=== PATIENT | female | born 1940 | race Two or more races ===

== ENCOUNTER 2023-11-20 20:14 | Inpatient (IN) | payer MEDICARE ==
--- NOTE | 2023-11-20 20:23 | ED ---
SOB HPI - General Chief Complaint: Shortness of Breath Stated Complaint: Coughing up blood Time Seen by Provider: 11/20/23 20:19 Source: EMS, RN notes reviewed, old records reviewed Mode of arrival: EMS Limitations: no limitations - History of Present Illness Initial Comments: This is an 83 male to the ED co coughing up blood. Patient is on eliquis for afib. PAtient has significant SOB, history of COPD on oxygen is brought in by EMS for hypoxia unable to improve O2 as a priority one, patient is a poor istorian due to significant clinical condition., Patient is having persistent hemoptysis here in the ER MD Complaint: shortness of breath, cough, anxiety -: hour(s) Severity: severe Severity scale (1-10): 10 Consistency: constant, intermittent Worsens With: nothing Known History Of: COPD Context: recent URI, anxiety, recent illness Associated Symptoms: denies other symptoms - Related Data Home Medications Medication Instructions Recorded Confirmed Amiodarone [Cordarone] 100 mg PO DAILY 11/20/23 11/20/23 Beclomethasone Dipropionate [Qvar 2 puff INHALATION DIRECTED 11/20/23 11/20/23 80mcg Redihaler] Cranberry 4,200 Mg 4,200 mg PO BID 11/20/23 11/20/23 Fluticasone Propionate 110 Mcg 2 puff INHALATION RT-BID 11/20/23 11/20/23 [Flovent 110 Mcg Inhaler] Levothyroxine Sodium [Synthroid] 75 mcg PO DAILY 11/20/23 11/20/23 Montelukast [Singulair] 10 mg PO HS 11/20/23 11/20/23 Multivit-Min/Iron/Folic/Lutein 1 tab PO HS 11/20/23 11/20/23 [Centrum Silver Women Tablet] Omeprazole 20 mg PO DAILY 11/20/23 11/20/23 Vit C/E/Zn/Coppr/Lutein/Zeaxan 1 cap PO BID 11/20/23 11/20/23 [Preservision Areds 2 Softgel] atenoloL [Tenormin] 25 mg PO HS 11/20/23 11/20/23 Allergies Allergy/AdvReac Type Severity Reaction Status Date / Time Penicillins Allergy Rash/Hives Verified 11/20/23 22:17 Review of Systems ROS Statement: Those systems with pertinent positive or pertinent negative responses have been documented in the HPI. ROS Other: All systems not noted in ROS Statement are negative. Past Medical History Past Medical History: Atrial Fibrillation, Asthma, COPD, Hypertension History of Any Multi-Drug Resistant Organisms: None Reported Past Surgical History: Cholecystectomy, Hysterectomy Past Psychological History: No Psychological Hx Reported Smoking Status: Never smoker Past Alcohol Use History: None Reported Past Drug Use History: None Reported General Exam Limitations: no limitations General appearance: alert, anxious, in distress Head exam: Present: atraumatic, normocephalic, normal inspection Eye exam: Present: normal appearance, PERRL, EOMI. Absent: scleral icterus, conjunctival injection, periorbital swelling ENT exam: Present: normal exam, mucous membranes moist Neck exam: Present: normal inspection. Absent: tenderness, meningismus, lymphadenopathy Respiratory exam: Present: respiratory distress, wheezes, accessory muscle use, decreased breath sounds, prolonged expiratory. Absent: rales, rhonchi, stridor Cardiovascular Exam: Present: normal rhythm, tachycardia, normal heart sounds. Absent: systolic murmur, diastolic murmur, rubs, gallop, clicks GI/Abdominal exam: Present: soft, normal bowel sounds. Absent: distended, tenderness, guarding, rebound, rigid Extremities exam: Present: normal inspection, full ROM, normal capillary refill. Absent: tenderness, pedal edema, joint swelling, calf tenderness Back exam: Present: normal inspection Neurological exam: Present: alert, oriented X3, CN II-XII intact Psychiatric exam: Present: normal affect, normal mood Skin exam: Present: warm, dry, intact, normal color. Absent: rash Course Vital Signs 11/20/23 11/20/23 11/20/23 20:15 20:24 20:50 Temperature 98.9 F Pulse Rate 102 H 99 Pulse Rate [ Pulse Oximetery ] Respiratory 20 20 Rate Blood Pressure 172/94 138/76 Blood Pressure [Right Arm Sitting] O2 Sat by Pulse 86 L 87 L 90 L Oximetry 11/20/23 11/20/23 11/20/23 21:08 21:10 21:43 Temperature Pulse Rate 100 99 99 Pulse Rate [ Pulse Oximetery ] Respiratory 20 Rate Blood Pressure 122/70 Blood Pressure [Right Arm Sitting] O2 Sat by Pulse 96 Oximetry 11/20/23 11/20/23 11/21/23 22:30 22:50 00:00 Temperature 97.9 F Pulse Rate 91 89 Pulse Rate [ 86 Pulse Oximetery ] Respiratory 20 18 20 Rate Blood Pressure 129/66 122/76 Blood Pressure 143/69 [Right Arm Sitting] O2 Sat by Pulse 99 99 100 Oximetry 11/21/23 01:00 Temperature Pulse Rate 90 Pulse Rate [ Pulse Oximetery ] Respiratory 20 Rate Blood Pressure 118/96 Blood Pressure [Right Arm Sitting] O2 Sat by Pulse 100 Oximetry - Reevaluation(s) Reevaluation #1: Medical records are reviewed Reevaluation #2: Symptoms are unchanged, bleeding is improved Reevaluation #3: Informed of results and questions answered Reevaluation #4: Was pt. sent in by a medical professional or institution ([facility], [facility], urgent care, hospital, or senior care...) When possible be specific @ -no Did you speak to anyone other than the patient for history (EMS, parent, family, police, friend...)? What history was obtained from this source @ -no Did you review nursing and triage notes (agree or disagree)? Why? @ -agree Are old charts reviewed (outside hosp., previous admission, EMS record, old EKG, old radiological studies, urgent care reports/EKG's, senior care records)? Report findings @ -yes Differential Diagnosis (chest pain, altered mental status, abdominal pain women, abdominal pain men, vaginal bleeding, weakness, fever, dyspnea, syncope, headache, dizziness, GI bleed, back pain, seizure, CVA, palpatations, mental health, musculoskeletal)? @ -prior EKG interpreted by me (3pts min.). @ -yes X-rays interpreted by me (1pt min.). @ -yes positive for pneumonitis CT interpreted by me (1pt min.). @ -yes positive for pneumonitis U/S interpreted by me (1pt. min.). @ -no What testing was considered but not performed or refused? (CT, X-rays, U/S, labs)? Why? @ -none What meds were considered but not given or refused? Why? @ -none Did you discuss the management of the patient with other professionals (professionals i.e. [facility], [facility], lab, RT, psych nurse, home health care social worker, doctor of veterinary medicine, teacher, enforcement safety officer, high risk case manager)? Give summary @ -no Was smoking cessation discussed for >3mins.? @ -no Was critical care preformed (if so, how long)? @ -no Were there social determinants of health that impacted care today? How? (Homelessness, low income, unemployed, alcoholism, drug addiction, transportation, low edu. Level, literacy, decrease access to med. care, [facility], rehab)? @ -none Was there de-escalation of care discussed even if they declined (Discuss DNR or withdrawal of care, Hospice)? DNR status @ -no What co-morbidities impacted this encounter? (DM, HTN, Smoking, COPD, CAD, Cancer, CVA, ARF, Chemo, Hep., AIDS, mental health diagnosis, sleep apnea, morbid obesity)? @ -none Was patient admitted / discharged? Hospital course, mention meds given and route, prescriptions, significant lab abnormalities, going to OR and other pertinent info. @ -83 female to the ER for evaluation of severe hypoxia with massive hemoptysis. Patient is a DNR but will admitted for supportive care Undiagnosed new problem with uncertain prognosis? @ -no Drug Therapy requiring intensive monitoring for toxicity (Heparin, Nitro, Insulin, Cardizem)? @ -no Were any procedures done? @ -no Diagnosis/symptom? @ -Massive hemoptysis, hypoxia, bronchitis Acute, or Chronic, or Acute on Chronic? @ -Acute Uncomplicated (without systemic symptoms) or Complicated (systemic symptoms)? @ -Complicated Side effects of treatment? @ -no Exacerbation, Progression, or Severe Exacerbation? @ -exacerbation Poses a threat to life or bodily function? How? (Chest pain, USA, AR, pneumonia, PE, COPD, DKA, ARF, appy, cholecystitis, CVA, Diverticulitis, Homicidal, Suicidal, threat to staff... and all critical care pts) @ -yes with significant massive hemoptysis Medical Decision Making - Medical Decision Making 83 female to the ER for evaluation, patient is a DNR coming in for massive pulmonary hemoptysis which is improving. Patient wants no change in symptoms. Patient is currently on blood thinners and will be admitted for evaluation of hemoptysis with severe hypoxia - Lab Data Result diagrams: 11/23/23 12:01 11/22/23 09:52 Lab Results 03/13/24 03/13/24 03/13/24 Range/Units 20:19 20:25 20:25 WBC 11.5 H (3.8-10.6) k/uL RBC 3.05 L (3.80-5.40) m/uL Hgb 9.8 L (11.4-16.0) gm/dL Hct 30.0 L (34.0-46.0) % MCV 98.4 (80.0-100.0) fL MCH 32.2 (25.0-35.0) pg MCHC 32.7 (31.0-37.0) g/dL RDW 13.4 (11.5-15.5) % Plt Count 397 (150-450) k/uL MPV 7.7 Neutrophils % 45 % Lymphocytes % 41 % Monocytes % 7 % Eosinophils % 3 % Basophils % 1 % Neutrophils # 5.2 (1.3-7.7) k/uL Lymphocytes # 4.7 (1.0-4.8) k/uL Monocytes # 0.8 (0-1.0) k/uL Eosinophils # 0.4 (0-0.7) k/uL Basophils # 0.1 (0-0.2) k/uL PT 10.6 (10.0-12.5) sec INR 1.0 (<1.2) APTT 23.6 (22.0-30.0) sec Sodium (137-145) mmol/L Potassium (3.5-5.1) mmol/L Chloride (98-107) mmol/L Carbon Dioxide (22-30) mmol/L Anion Gap mmol/L BUN (7-17) mg/dL Creatinine (0.52-1.04) mg/dL Est GFR (CKD-EPI)AfAm (>60 ml/min/1.73 sqM) Est GFR (CKD-EPI)NonAf (>60 ml/min/1.73 sqM) Glucose (74-99) mg/dL Lactic Ac Sepsis Rflx Plasma Lactic Acid Ayush (0.7-2.0) mmol/L Calcium (8.4-10.2) mg/dL Magnesium (1.6-2.3) mg/dL Total Bilirubin (0.2-1.3) mg/dL AST (14-36) U/L ALT (4-34) U/L Alkaline Phosphatase (38-126) U/L Troponin I (0.000-0.034) ng/mL NT-Pro-B Natriuret Pep pg/mL Total Protein (6.3-8.2) g/dL Albumin (3.5-5.0) g/dL Blood Type A Positive Blood Type Confirm Blood Type Recheck No Previous Record Bld Type Recheck Status CABO Indicated Antibody Screen NEGATIVE Spec Expiration Date 11/23/2023 - 231811/20/23 11/20/23 11/20/23 Range/Units 20:25 20:25 20:25 WBC (3.8-10.6) k/uL RBC (3.80-5.40) m/uL Hgb (11.4-16.0) gm/dL Hct (34.0-46.0) % MCV (80.0-100.0) fL MCH (25.0-35.0) pg MCHC (31.0-37.0) g/dL RDW (11.5-15.5) % Plt Count (150-450) k/uL MPV Neutrophils % % Lymphocytes % % Monocytes % % Eosinophils % % Basophils % % Neutrophils # (1.3-7.7) k/uL Lymphocytes # (1.0-4.8) k/uL Monocytes # (0-1.0) k/uL Eosinophils # (0-0.7) k/uL Basophils # (0-0.2) k/uL PT (10.0-12.5) sec INR (<1.2) APTT (22.0-30.0) sec Sodium 133 L (137-145) mmol/L Potassium 3.7 (3.5-5.1) mmol/L Chloride 99 (98-107) mmol/L Carbon Dioxide 25 (22-30) mmol/L Anion Gap 9 mmol/L BUN 14 (7-17) mg/dL Creatinine 0.41 L (0.52-1.04) mg/dL Est GFR (CKD-EPI)AfAm >90 (>60 ml/min/1.73 sqM) Est GFR (CKD-EPI)NonAf >90 (>60 ml/min/1.73 sqM) Glucose 214 H (74-99) mg/dL Lactic Ac Sepsis Rflx Plasma Lactic Acid Ayush 2.6 H* (0.7-2.0) mmol/L Calcium 8.4 (8.4-10.2) mg/dL Magnesium 2.0 (1.6-2.3) mg/dL Total Bilirubin 0.3 (0.2-1.3) mg/dL AST 24 (14-36) U/L ALT 18 (4-34) U/L Alkaline Phosphatase 111 (38-126) U/L Troponin I <0.012 (0.000-0.034) ng/mL NT-Pro-B Natriuret Pep 649 pg/mL Total Protein 6.5 (6.3-8.2) g/dL Albumin 3.6 (3.5-5.0) g/dL Blood Type Blood Type Confirm Blood Type Recheck Bld Type Recheck Status Antibody Screen Spec Expiration Date 11/20/23 11/20/23 Range/Units 20:31 21:07 WBC (3.8-10.6) k/uL RBC (3.80-5.40) m/uL Hgb (11.4-16.0) gm/dL Hct (34.0-46.0) % MCV (80.0-100.0) fL MCH (25.0-35.0) pg MCHC (31.0-37.0) g/dL RDW (11.5-15.5) % Plt Count (150-450) k/uL MPV Neutrophils % % Lymphocytes % % Monocytes % % Eosinophils % % Basophils % % Neutrophils # (1.3-7.7) k/uL Lymphocytes # (1.0-4.8) k/uL Monocytes # (0-1.0) k/uL Eosinophils # (0-0.7) k/uL Basophils # (0-0.2) k/uL PT (10.0-12.5) sec INR (<1.2) APTT (22.0-30.0) sec Sodium (137-145) mmol/L Potassium (3.5-5.1) mmol/L Chloride (98-107) mmol/L Carbon Dioxide (22-30) mmol/L Anion Gap mmol/L BUN (7-17) mg/dL Creatinine (0.52-1.04) mg/dL Est GFR (CKD-EPI)AfAm (>60 ml/min/1.73 sqM) Est GFR (CKD-EPI)NonAf (>60 ml/min/1.73 sqM) Glucose (74-99) mg/dL Lactic Ac Sepsis Rflx Y Plasma Lactic Acid Ayush (0.7-2.0) mmol/L Calcium (8.4-10.2) mg/dL Magnesium (1.6-2.3) mg/dL Total Bilirubin (0.2-1.3) mg/dL AST (14-36) U/L ALT (4-34) U/L Alkaline Phosphatase (38-126) U/L Troponin I (0.000-0.034) ng/mL NT-Pro-B Natriuret Pep pg/mL Total Protein (6.3-8.2) g/dL Albumin (3.5-5.0) g/dL Blood Type Blood Type Confirm A Positive Blood Type Recheck Bld Type Recheck Status Antibody Screen Spec Expiration Date - EKG Data -: EKG Interpreted by Me (EKG is sinus tachycardia 109 TX 139 QRS 74 QTc 425) - Radiology Data Radiology results: report reviewed (Chest x-ray CT chest positive for pneumonia or pneumonitis), image reviewed Critical Care Time Critical Care Time: Yes Total Critical Care Time: 65 Disposition Clinical Impression: Acute exacerbation of chronic obstructive pulmonary disease, Hypoxia, Massive hemoptysis Disposition: ADMITTED IP TO THIS HOSP Condition: Stable Is patient prescribed a controlled substance at d/c from ED?: No Time of Disposition: 22:20
[2023-11-20] MEDS: SODIUM CHLORIDE 0.9% 1,000 ML IV STA (20:27)
[2023-11-20] MEDS ORDERED: Kcentra PER PHARMACY 1 EACH MISC MISCELLANE PRN (20:30)
[2023-11-20] MEDS: DEXAMETHASONE SOD PHOSPHATE 10 MG/ML 1 ML VIAL IVP STA (20:35)
[2023-11-20] MEDS: MORPHINE SULFATE 2 MG/ML SYRINGE IVP STA (20:35)
[2023-11-20] MEDS: TERBUTALINE 1 MG/ML VIAL SQ STA (20:39)
[2023-11-20 20:44] LABS: Basophils # (A) 0.1 k/uL (0-0.2); Basophils % (A) 1 %; Eosinophils # (A) 0.4 k/uL (0-0.7); Eosinophils % (A) 3 %; HGB 9.8 gm/dL (11.4-16.0); Lymphocytes # (A) 4.7 k/uL (1.0-4.8); Lymphocytes % (A) 41 %; MCH 32.2 pg (25.0-35.0); MCHC 32.7 g/dL (31.0-37.0); MCV 98.4 fL (80.0-100.0); Mean Platelet Volume 7.7; Monocytes # (A) 0.8 k/uL (0-1.0); Monocytes % (A) 7 %; Neutrophils # (A) 5.2 k/uL (1.3-7.7); Neutrophils % (A) 45 %; Platelet Count 397 k/uL (150-450); RBC 3.05 m/uL (3.80-5.40); RDW 13.4 % (11.5-15.5); WBC 11.5 k/uL (3.8-10.6)
[2023-11-20] MEDS ORDERED: HUMAN PROTHROMBIN COMPLX 500 UNIT/16 ML VIAL IV ONE (20:45)
[2023-11-20] MEDS: HUMAN PROTHROMBIN COMPLX IV ONE (20:47)
[2023-11-20 21:00] LABS: Partial Thromboplastin Time 23.6 sec (22.0-30.0); Prothrombin Time 10.6 sec (10.0-12.5)
[2023-11-20] MEDS: IPRATROPIUM-ALBUTEROL 3 ML NEB INHALATION STA (21:01)
[2023-11-20] MEDS: TRANEXAMIC ACID 1,000 MG/10 ML VIAL INHALATION ONE (21:03)
[2023-11-20 21:04] LABS: ALT 18 U/L (4-34); AST 24 U/L (14-36); African American GFR (CKD) >90 (>60 ml/min/1.73 sqM); Albumin 3.6 g/dL (3.5-5.0); Alkaline Phosphatase 111 U/L (38-126); Anion Gap 9 mmol/L; Blood Urea Nitrogen 14 mg/dL (7-17); Calcium 8.4 mg/dL (8.4-10.2); Carbon Dioxide 25 mmol/L (22-30); Chloride 99 mmol/L (98-107); Glucose 214 mg/dL (74-99); Non-African American GFR(CKD) >90 (>60 ml/min/1.73 sqM); Potassium 3.7 mmol/L (3.5-5.1); Sodium 133 mmol/L (137-145); Total Bilirubin 0.3 mg/dL (0.2-1.3); Total Protein 6.5 g/dL (6.3-8.2)
[2023-11-20 21:10] LABS: NT-Pro-B-Type Natriuretic Pept 649 pg/mL
--- NOTE | 2023-11-20 22:15 | XR ---
EXAMINATION TYPE: XR chest 1V portable DATE OF EXAM: 11/20/2023 8:36 PM CLINICAL INDICATION:Female, 83 years old with history of cp; [facility] COMPARISON: None TECHNIQUE: XR chest 1V portable Frontal view of the chest. FINDINGS: Lungs/Pleura: Right midlung 33 x 29 mm masslike opacity. There is no evidence of pleural effusion, fo alex consolidation, or pneumothorax. Pulmonary vascularity: Unremarkable. Heart/mediastinum: Cardiomediastinal silhouette is unremarkable. Musculoskeletal: No acute osseous pathology. IMPRESSION: Right midlung masslike opacity further evaluation of chest with CT recommended.
[2023-11-20] MEDS ORDERED: MORPHINE SULFATE 4 MG/ML SYRINGE IV PRN (22:22)
[2023-11-20] MEDS ORDERED: NALOXONE 0.4 MG/ML 1 ML VIAL IV PRN (22:22)
[2023-11-20] MEDS: SODIUM CHLORIDE 0.9% 1,000 ML IV SCH (22:36)
[2023-11-21] MEDS ORDERED: RX INFO: IV CONTRAST WAS GIVEN 1 EACH MISC MISCELLANE PRN (00:40)
[2023-11-21] MEDS: ONDANSETRON 4 MG/2 ML VIAL IVP PRN (01:23)
--- NOTE | 2023-11-21 01:32 | CT ---
EXAMINATION TYPE: CT chest w con DATE OF EXAM: 11/21/2023 COMPARISON: Chest x-ray one day earlier HISTORY: ABNORMAL CXR CT DLP: 202.1 mGycm. Automated Exposure Control for Dose Reduction was Utilized. TECHNIQUE: CT scan of the thorax is performed following with IV Contrast, patient injected with 100 mL of Isovue 300. FINDINGS: LUNGS:. Some groundglass opacity and organizing consolidations in the right upper lobe anteriorly are seen. Focal consolidation and/or atelectasis medial right upper lobe abutting the mediastinum. There is additional nodule or nodular consolidation measuring 2.2 x 2.0 cm right mid lung axial image 33. Groundglass opacity in the right middle lobe is present. Some additional areas of groundglass opacity in the left upper lobe are seen. Some focal consolidatio n and/or atelectasis in the lingula. Mild left basilar linear scarring and/or atelectasis. Trace left basilar pleural effusion. No pneumothorax seen bilaterally. MEDIASTINUM: There are no greater than 1 cm hilar or mediastinal lymph nodes. No cardiomegaly or pe ricardial effusion is seen. Moderate size hiatal hernia. OTHER: Scoliotic curvature. Cholecystectomy clips are partially imaged. IMPRESSION: Multifocal groundglass opacities in the bilateral upper lobes with areas of organizing co nsolidation in the right upper lobe. Some involvement in the right middle lobe is seen. Multifocal pn eumonia or infectious process is suspected. Correlate clinically. Areas of nodular consolidation are noted. Cannot exclude underlying nodularity or neoplasm. Follow-up CT study after treatment is advise d in one to 2 months time to reassess.
--- NOTE | 2023-11-21 07:24 | XR ---
EXAMINATION TYPE: XR chest 1V DATE OF EXAM: 11/21/2023 COMPARISON: 11/20/2023 HISTORY: 83-year-old female hypoxia TECHNIQUE: Single frontal view of the chest is obtained. FINDINGS: Heart size. Inflation. Interstitial infiltrates especially in the upper and midlungs are r edemonstrated. Focal 2.7 cm right mid lung nodule redemonstrated. No pleural effusion. IMPRESSION: Similar COPD with multifocal patchy interstitial infiltrates especially in the upper and midlungs and 2.7 cm focal consolidation or nodule at the right midlung.
[2023-11-21] MEDS ORDERED: PANTOPRAZOLE 40 MG TABLET PO SCH (07:30)
[2023-11-21] MEDS: PANTOPRAZOLE 40 MG/10 ML VIAL IVP SCH (08:22)
[2023-11-21] MEDS: LEVOTHYROXINE 75 MCG TAB PO SCH (08:22)
[2023-11-21] MEDS: AMIODARONE 100 MG TAB PO SCH (08:22)
[2023-11-21] MEDS: ACETAMINOPHEN TAB 325 MG TAB PO PRN (08:22)
[2023-11-21 09:46] LABS: Basophils % (A) 0 %; Eosinophils % (A) 0 %; HCT 27.8 % (34.0-46.0); Lymphocytes # (A) 0.9 k/uL (1.0-4.8); Lymphocytes % (A) 8 %; MCH 32.1 pg (25.0-35.0); MCHC 32.5 g/dL (31.0-37.0); MCV 98.9 fL (80.0-100.0); Mean Platelet Volume 8.4; Monocytes # (A) 0.4 k/uL (0-1.0); Monocytes % (A) 4 %; Neutrophils % (A) 88 %; Platelet Count 283 k/uL (150-450); RBC 2.81 m/uL (3.80-5.40); RDW 13.5 % (11.5-15.5); WBC 11.5 k/uL (3.8-10.6)
[2023-11-21 10:01] LABS: ALT 18 U/L (4-34); AST 22 U/L (14-36); African American GFR (CKD) >90 (>60 ml/min/1.73 sqM); Alkaline Phosphatase 90 U/L (38-126); Anion Gap 5 mmol/L; Blood Urea Nitrogen 11 mg/dL (7-17); Calcium 7.9 mg/dL (8.4-10.2); Carbon Dioxide 26 mmol/L (22-30); Chloride 103 mmol/L (98-107); Glucose 183 mg/dL (74-99); Magnesium 1.9 mg/dL (1.6-2.3); Non-African American GFR(CKD) >90 (>60 ml/min/1.73 sqM); Phosphorus 3.4 mg/dL (2.5-4.5); Potassium 5.2 mmol/L (3.5-5.1); Sodium 134 mmol/L (137-145); Total Bilirubin 0.2 mg/dL (0.2-1.3); Total Protein 5.6 g/dL (6.3-8.2)
--- NOTE | 2023-11-21 11:02 | P.CNPUL ---
History of Present Illness Consult date: 11/21/23 Requesting physician: Siddharth Childs Reason for consult: dyspnea, cough, asthma, COPD, lung mass, abnormal CXR/CT Chief complaint: Hemoptysis. History of present illness: Pulmonary consult dated November 21, 2023. 83-year-old female with a history of COPD, asthma, atrial fibrillation, and hypothyroidism, who was seen in the emergency department, on November 19, for shortness of breath, and coughing up blood. The patient apparently according to EMS, coughed up between 500 to 700 cc of bright red blood. The patient was placed on oxygen, and brought into the ER to be evaluated. She was admitted w ith a diagnosis of a right lung mass, and massive hemoptysis. She actually sees Dr. Adal Bauman at [facility]. Currently, she is on 3 L of oxygen, getting saline at 75 cc an hour. She had a previous episode of massive hemoptysis in March, of last year, and now again. According to her, Dr. Bauman has not really done much for the mass in her right chest. She has not had a bronchoscopy, or had a PET scan. She has had a chest x-ray, and CAT scan. She states that she was a lifelong non-smoker, but was still diagnosed with asthma, and COPD. She does use home oxygen. Home medications include amiodarone, Eliquis, Qvar RediHaler, Flovent, levothyroxine, Singulair, omeprazole, and atenolol. White count 11.5, hemoglobin 9, hematocrit 27.8, and platelet count 283,000. Sodium 134, potassium 5.2, chlorides 103, CO2 26, BUN 11, creatinine 0.36. Calcium is 7.9. Albumin is 3. Chest x-ray shows a right midlung masslike opacity. CT scan shows multifocal groundglass opacities in the bilateral upper lobes, with areas of organizing consolidation, in the right upper lobe. Some involvement in the right middle lobe is also seen. Neoplasm cannot be excluded. The nodular lesion seen on x-ray, measures 2.2 x 2.0 cm, in the right midlung. Review of Systems REVIEW OF SYSTEMS: CONSTITUTIONAL: [Negative.] NEUROLOGIC: [ Negative.] HEENT: [ Negative.] CARDIAC: [Negative.] PULMONARY: Shortness of breath, and significant hemoptysis. GI: [Negative.] : [Negative.] RHEUMATOLOGIC: [ Negative.] IMMUNOLOGIC: [ Negative.] ENDOCRINE: [Negative. ] DERMATOLOGIC: [Negative.] Past Medical History Past Medical History: Atrial Fibrillation, Asthma, COPD, Hypertension History of Any Multi-Drug Resistant Organisms: None Reported Past Surgical History: Cholecystectomy, Hysterectomy Past Anesthesia/Blood Transfusion Reactions: No Reported Reaction Past Psychological History: No Psychological Hx Reported Smoking Status: Never smoker Past Alcohol Use History: None Reported Past Drug Use History: None Reported Medications and Allergies Home Medications Medication Instructions Recorded Confirmed Type Amiodarone [Cordarone] 100 mg PO DAILY 11/20/23 11/20/23 History Beclomethasone Dipropionate [Qvar 2 puff INHALATION DIRECTED 11/20/23 11/20/23 History 80mcg Redihaler] Cranberry 4,200 Mg 4,200 mg PO BID 11/20/23 11/20/23 History Fluticasone Propionate 110 Mcg 2 puff INHALATION RT-BID 11/20/23 11/20/23 History [Flovent 110 Mcg Inhaler] Levothyroxine Sodium [Synthroid] 75 mcg PO DAILY 11/20/23 11/20/23 History Montelukast [Singulair] 10 mg PO HS 11/20/23 11/20/23 History Multivit-Min/Iron/Folic/Lutein 1 tab PO HS 11/20/23 11/20/23 History [Centrum Silver Women Tablet] Omeprazole 20 mg PO DAILY 11/20/23 11/20/23 History Vit C/E/Zn/Coppr/Lutein/Zeaxan 1 cap PO BID 11/20/23 11/20/23 History [Preservision Areds 2 Softgel] atenoloL [Tenormin] 25 mg PO HS 11/20/23 11/20/23 History Allergies Allergy/AdvReac Type Severity Reaction Status Date / Time Penicillins Allergy Rash/Hives Verified 11/20/23 22:17 Physical Exam Osteopathic Statement: *. No significant issues noted on an osteopathic structural exam other than those noted in the History and Physical/Consult. Vitals: Vital Signs Temp Pulse Pulse Resp BP BP Pulse Ox 11/21/23 08:30 98.0 F 84 18 129/64 99 11/21/23 04:00 91 18 140/76 97 11/21/23 01:00 90 20 118/96 100 11/21/23 00:00 89 20 122/76 100 11/20/23 22:50 97.9 F 86 18 143/69 99 11/20/23 22:30 91 20 129/66 99 11/20/23 21:43 99 11/20/23 21:10 99 20 122/70 96 11/20/23 21:08 100 11/20/23 20:50 99 20 138/76 90 L 11/20/23 20:24 87 L 11/20/23 20:15 98.9 F 102 H 20 172/94 86 L Intake and Output 11/20/23 11/21/23 11/21/23 22:59 06:59 14:59 Intake Total 240 Balance 240 Intake: Oral 240 Other: # Voids 1 1 Weight 54.431 kg No acute distress, oriented 3. Currently on 3 L. No respiratory distress. No conversational dyspnea. HEENT examination is grossly unremarkable. Mucous membranes are moist. No oral lesions. Neck supple. Full range of motion. No adenopathy thyromegaly or neck vein distention. Cardiovascular examination reveals regular rhythm rate. S1-S2 normal. No S3 or S4. No discernible murmur noted. Heart rate 84 bpm. Lungs reveal scattered bilateral rhonchi. No wheezes. No crackles. Breath sounds equal bilaterally. Saturations are 97%. Abdomen soft bowel sounds are heard. No masses or tenderness. Extremities are intact. No cyanosis clubbing or edema. Skin is without rash or lesion. Neurologic examination is brief but nonfocal. Results - Laboratory Findings CBC and BMP: 11/21/23 08:39 11/21/23 08:39 PT/INR, D-dimer PT 10.6 sec (10.0-12.5) 11/20/23 20:25 INR 1.0 (<1.2) 11/20/23 20:25 Abnormal lab findings: Abnormal Labs 11/20/23 11/20/23 11/20/23 20:25 20:25 20:25 WBC 11.5 H RBC 3.05 L Hgb 9.8 L Hct 30.0 L Neutrophils # Lymphocytes # Sodium 133 L Potassium Creatinine 0.41 L Glucose 214 H Plasma Lactic Acid Ayush 2.6 H* Calcium Total Protein Albumin 11/21/23 11/21/23 08:39 08:39 WBC 11.5 H RBC 2.81 L Hgb 9.0 L Hct 27.8 L Neutrophils # 10.0 H Lymphocytes # 0.9 L Sodium 134 L Potassium 5.2 H Creatinine 0.36 L Glucose 183 H Plasma Lactic Acid Ayush Calcium 7.9 L Total Protein 5.6 L Albumin 3.0 L - Diagnostic Findings Chest x-ray: image reviewed CT scan - chest: image reviewed Assessment and Plan Assessment: Massive hemoptysis, second episode, of unclear etiology. May relate to nodular lesion, in right midlung. Right midlung lesion, which could represent infectious, and/or neoplastic process. History of COPD and asthma. Lifelong non-smoker. History of chronic atrial fibrillation. History of hypothyroidism. Gastroesophageal reflux disease. Plan: Plan dated November 21, 2023. It is my opinion, that the patient should be transferred, to [facility], for bronchial artery embolization, for her second episode of massive hemoptysis. According to the ER member, and EMS, the patient coughed up 500 to 700 cc of bright red blood. The patient is on a blood thinner, for her chronic atrial fibrillation, which is certainly contributing to the hemoptysis. In addition, she has a lesion in the right midlung, which could be infectious/inflammatory/neoplastic. This area, is apparently being followed by her capacity manager, at [facility]. The patient should have an outpatient PET scan as well. Additional recommendations and suggestions are forthcoming. Will pass on our recommendations to the hospital team. Time with Patient: Greater than 30
--- NOTE | 2023-11-21 13:06 | P.HPIM ---
History of Present Illness H&P Date: 11/21/23 History of present illness; patient is a 83-year-old lady with past medical significant for A-fib on Eliquis, hypothyroidism who was brought to the ER for hemoptysis. Patient was complaining of shortness of breath at rest. According to EMS patient has coughed up around 700 mL of blood. There was no complaint of chest pain. Patient denies any fever or chills. There was no complaint of nausea or vomiting, denies any hematemesis. Because of this, patient was brought to the ER Initial lab work done in the ER showed WBC 7.5, hemoglobin 9.8, platelet count 397, sodium 133, potassium 3.7, BUN 14, creatinine 0.41, lactate 2.6 troponin 0.012 EKG done in the ER showed heart rate of 109, sinus tachycardia, no ST segment elevation or depression seen, no T-wave inversions seen. Chest x-ray done in the ER showed right midlung masslike opacity further evaluation of the chest with CT recommended CT chest done showed multifocal groundglass opacities in the bilateral upper lobe with areas of organizing consolidation in the right upper lobe. Some involving in the right middle lobe seen. Because of hemoptysis, patient received Kcentra in the ER Patient admitted to internal medicine service REVIEW OF SYSTEMS: CONSTITUTIONAL: No fever, no malaise, no fatigue. HEENT: No recent visual problems or hearing problems. Denied any sore throat. CARDIOVASCULAR: No chest pain, orthopnea, PND, no palpitations, no syncope. PULMONARY: As mentioned above GASTROINTESTINAL: No diarrhea, no nausea, no vomiting, no abdominal pain. NEUROLOGICAL: No headaches, no weakness, no numbness. HEMATOLOGICAL: Denies any bleeding or petechiae. GENITOURINARY: Denies any burning micturition, frequency, or urgency. MUSCULOSKELETAL/RHEUMATOLOGICAL: Denies any joint pain, swelling, or any muscle pain. ENDOCRINE: Denies any polyuria or polydipsia. The rest of the 14-point review of systems is negative. PHYSICAL EXAMINATION: GENERAL: The patient is alert and oriented x3, not in any acute distress. Well developed, well nourished. HEENT: Pupils are round and equally reacting to light. EOMI. No scleral icterus. No conjunctival pallor. Normocephalic, atraumatic. No pharyngeal erythema. No thyromegaly. CARDIOVASCULAR: S1 and S2 present. No murmurs, rubs, or gallops. PULMONARY: Coarse breath sound bilaterally, no wheezing or crackles. ABDOMEN: Soft, nontender, nondistended, normoactive bowel sounds. No palpable organomegaly. MUSCULOSKELETAL: No joint swelling or deformity. EXTREMITIES: No cyanosis, clubbing, or pedal edema. NEUROLOGICAL: Gross neurological examination did not reveal any focal deficits. SKIN: No rashes. Assessment and plan Hemoptysis Acute hypoxic respiratory failure History of atrial fibrillation Hypothyroidism Monitor vital signs Monitor CBC Monitor CMP Continue telemetry monitoring Patient already received Kcentra in the ER. Continue breathing treatment Keep patient n.p.o. Continue IV Protonix Resume amiodarone and atenolol. Consult pulmonology Labs and medication were reviewed.. Continue same treatment. Continue with symptomatic treatment. Resume home medication. Monitor labs and vitals. DVT and GI prophylaxis. Further recommendations as per clinical course of the patient Dictation was produced using [employer] dictation software. please excuse any grammatical, word or spelling errors. Past Medical History Past Medical History: Atrial Fibrillation, Asthma, COPD, Hypertension History of Any Multi-Drug Resistant Organisms: None Reported Past Surgical History: Cholecystectomy, Hysterectomy Past Anesthesia/Blood Transfusion Reactions: No Reported Reaction Past Psychological History: No Psychological Hx Reported Smoking Status: Never smoker Past Alcohol Use History: None Reported Past Drug Use History: None Reported Medications and Allergies Home Medications Medication Instructions Recorded Confirmed Type Amiodarone [Cordarone] 100 mg PO DAILY 11/20/23 11/20/23 History Beclomethasone Dipropionate [Qvar 2 puff INHALATION DIRECTED 11/20/23 11/20/23 History 80mcg Redihaler] Cranberry 4,200 Mg 4,200 mg PO BID 11/20/23 11/20/23 History Fluticasone Propionate 110 Mcg 2 puff INHALATION RT-BID 11/20/23 11/20/23 History [Flovent 110 Mcg Inhaler] Levothyroxine Sodium [Synthroid] 75 mcg PO DAILY 11/20/23 11/20/23 History Montelukast [Singulair] 10 mg PO HS 11/20/23 11/20/23 History Multivit-Min/Iron/Folic/Lutein 1 tab PO HS 11/20/23 11/20/23 History [Centrum Silver Women Tablet] Omeprazole 20 mg PO DAILY 11/20/23 11/20/23 History Vit C/E/Zn/Coppr/Lutein/Zeaxan 1 cap PO BID 11/20/23 11/20/23 History [Preservision Areds 2 Softgel] atenoloL [Tenormin] 25 mg PO HS 11/20/23 11/20/23 History Allergies Allergy/AdvReac Type Severity Reaction Status Date / Time Penicillins Allergy Rash/Hives Verified 11/20/23 22:17 Physical Exam Vitals: Vital Signs Temp Pulse Pulse Resp BP BP Pulse Ox 11/21/23 04:00 91 18 140/76 97 11/21/23 01:00 90 20 118/96 100 11/21/23 00:00 89 20 122/76 100 11/20/23 22:50 97.9 F 86 18 143/69 99 11/20/23 22:30 91 20 129/66 99 11/20/23 21:43 99 11/20/23 21:10 99 20 122/70 96 11/20/23 21:08 100 11/20/23 20:50 99 20 138/76 90 L 11/20/23 20:24 87 L 11/20/23 20:15 98.9 F 102 H 20 172/94 86 L Intake and Output 11/20/23 11/21/23 11/21/23 22:59 06:59 14:59 Intake Total 240 Balance 240 Intake: Oral 240 Other: # Voids 1 Weight 54.431 kg Results CBC & Chem 7: 11/21/23 08:39 11/21/23 08:39 Labs: Abnormal Lab Results - Last 24 Hours (Table) 11/20/23 11/20/23 11/20/23 Range/Units 20:25 20:25 20:25 WBC 11.5 H (3.8-10.6) k/uL RBC 3.05 L (3.80-5.40) m/uL Hgb 9.8 L (11.4-16.0) gm/dL Hct 30.0 L (34.0-46.0) % Sodium 133 L (137-145) mmol/L Creatinine 0.41 L (0.52-1.04) mg/dL Glucose 214 H (74-99) mg/dL Plasma Lactic Acid Ayush 2.6 H* (0.7-2.0) mmol/L Thrombosis Risk Factor Assmnt - Choose All That Apply Each Factor Represents 1 point: Abnormal pulmonary function (COPD) Each Risk Factor Represents 3 Points: Age 75 years or older Thrombosis Risk Factor Assessment Total Risk Factor Score: 4 Thrombosis Risk Factor Assessment Level: Moderate Risk
--- NOTE | 2023-11-21 13:11 | P.DS ---
Providers Date of admission: 11/20/23 22:22 Expected date of discharge: 11/21/23 Attending physician: Siddharth Childs Consults: 11/20/23 22:22 Consult Physician Routine Consulting Provider: Ke Gonzalez Consult Reason/Comments: hemoptysis Do you want consulting provider notified?: Yes Primary care physician: [facility] Course: Discharge diagnoses; Hemoptysis Acute hypoxic respiratory failure Right midlung mass History of atrial fibrillation Hypothyroidism History of COPD and asthma. Lifelong non-smoker. Hospital course; patient is a 83-year-old lady with past medical significant for A-fib on Eliquis, hypothyroidism who was brought to the ER for hemoptysis. Patient was complaining of shortness of breath at rest. According to EMS patient has coughed up around 700 mL of blood. There was no complaint of chest pain. Patient denies any fever or chills. There was no complaint of nausea or vomiting, denies any hematemesis. Because of this, patient was brought to the ER Initial lab work done in the ER showed WBC 7.5, hemoglobin 9.8, platelet count 397, sodium 133, potassium 3.7, BUN 14, creatinine 0.41, lactate 2.6 troponin 0.012 EKG done in the ER showed heart rate of 109, sinus tachycardia, no ST segment elevation or depression seen, no T-wave inversions seen. Chest x-ray done in the ER showed right midlung masslike opacity further evalua tion of the chest with CT recommended CT chest done showed multifocal groundglass opacities in the bilateral upper lobe with areas of organizing consolidation in the right upper lobe. Some involving in the right middle lobe seen. Because of hemoptysis, patient received Kcentra in the ER Patient admitted to internal medicine service Pulmonology evaluated patient, recommended at this time since patient is still having hemoptysis, they wanted patient to be transferred to [facility] for bronchial artery embolization. Transfer line was contacted,, case was discussed and patient was accepted at [facility]. Patient and family updated, they are agreeable with the plan. PHYSICAL EXAMINATION: GENERAL: The patient is alert and oriented x3, not in any acute distress. Well developed, well nourished. HEENT: Pupils are round and equally reacting to light. EOMI. No scleral icterus. No conjunctival pallor. Normocephalic, atraumatic. No pharyngeal erythema. No thyromegaly. CARDIOVASCULAR: S1 and S2 present. No murmurs, rubs, or gallops. PULMONARY: Coarse breath sound bilaterally, no wheezing or crackles. ABDOMEN: Soft, nontender, nondistended, normoactive bowel sounds. No palpable organomegaly. MUSCULOSKELETAL: No joint swelling or deformity. EXTREMITIES: No cyanosis, clubbing, or pedal edema. NEUROLOGICAL: Gross neurological examination did not reveal any focal deficits. SKIN: No rashes. Bruising present on left forearm, bruising also seen in right forearm Dictation was produced using [employer] dictation software. please excuse any grammatical, word or spelling errors. Patient Condition at Discharge: Stable Plan - Discharge Summary Discharge Rx Participant: No New Discharge Prescriptions: Continue Fluticasone Propionate 110 Mcg [Flovent 110 Mcg Inhaler] 2 puff INHALATION RT-BID Multivit-Min/Iron/Folic/Lutein [Centrum Silver Women Tablet] 1 tab PO HS Amiodarone [Cordarone] 100 mg PO DAILY Vit C/E/Zn/Coppr/Lutein/Zeaxan [Preservision Areds 2 Softgel] 1 cap PO BID Cranberry 4,200 Mg 4,200 mg PO BID Levothyroxine Sodium [Synthroid] 75 mcg PO DAILY atenoloL [Tenormin] 25 mg PO HS Montelukast [Singulair] 10 mg PO HS Beclomethasone Dipropionate [Qvar 80mcg Redihaler] 2 puff INHALATION DIRECTED Omeprazole 20 mg PO DAILY Discontinued Apixaban [Eliquis] 5 mg PO BID Discharge Medication List Amiodarone [Cordarone] 100 mg PO DAILY 11/20/23 [History] Beclomethasone Dipropionate [Qvar 80mcg Redihaler] 2 puff INHALATION DIRECTED 11/20/23 [History] Cranberry 4,200 Mg 4,200 mg PO BID 11/20/23 [History] Fluticasone Propionate 110 Mcg [Flovent 110 Mcg Inhaler] 2 puff INHALATION RT- BID 11/20/23 [History] Levothyroxine Sodium [Synthroid] 75 mcg PO DAILY 11/20/23 [History] Montelukast [Singulair] 10 mg PO HS 11/20/23 [History] Multivit-Min/Iron/Folic/Lutein [Centrum Silver Women Tablet] 1 tab PO HS 11/20/23 [History] Omeprazole 20 mg PO DAILY 11/20/23 [History] Vit C/E/Zn/Coppr/Lutein/Zeaxan [Preservision Areds 2 Softgel] 1 cap PO BID 11/20/23 [History] atenoloL [Tenormin] 25 mg PO HS 11/20/23 [History] Follow up Appointment(s)/Referral(s): Marianne Dahl [Primary Care Provider] - 1-2 days Discharge Disposition: OTHER INSTITUTION NOT DEFINED
[2023-11-21] MEDS: atenoloL 25 MG TAB PO SCH (21:06)
[2023-11-21] MEDS: MONTELUKAST 10 MG TAB PO SCH (21:06)
[2023-11-22 10:22] LABS: Basophils # (A) 0.1 k/uL (0-0.2); Basophils % (A) 0 %; Eosinophils # (A) 0.1 k/uL (0-0.7); Eosinophils % (A) 1 %; HCT 26.8 % (34.0-46.0); HGB 8.6 gm/dL (11.4-16.0); Lymphocytes # (A) 2.1 k/uL (1.0-4.8); Lymphocytes % (A) 17 %; MCH 31.7 pg (25.0-35.0); Mean Platelet Volume 7.5; Monocytes # (A) 1.2 k/uL (0-1.0); Monocytes % (A) 10 %; Neutrophils # (A) 8.8 k/uL (1.3-7.7); Neutrophils % (A) 71 %; Platelet Count 297 k/uL (150-450); RBC 2.71 m/uL (3.80-5.40); RDW 13.4 % (11.5-15.5); WBC 12.4 k/uL (3.8-10.6)
--- NOTE | 2023-11-22 10:33 | P.PN ---
Subjective Progress Note Date: 11/22/23 Principal diagnosis: Hemoptysis. Pulmonary consult dated November 21, 2023. 83-year-old female with a history of COPD, asthma, atrial fibrillation, and hypothyroidism, who was seen in the emergency department, on November 19, for shortness of breath, and coughing up blood. The patient apparently according to EMS, coughed up between 500 to 700 cc of bright red blood. The patient was placed on oxygen, and brought into the ER to be evaluated. She was admitted with a diagnosis of a right lung mass, and massive hemoptysis. She actually sees Dr. Adal Bauman at [facility]. Currently, she is on 3 L of oxygen, getting saline at 75 cc an hour. She had a previous episode of massive hemoptysis in March, of last year, and now again. According to her, Dr. Bauman has not really done much for the mass in her right chest. She has not had a bronchoscopy, or had a PET scan. She has had a chest x-ray, and CAT scan. She states that she was a lifelong non-smoker, but was still diagnosed with asthma, and COPD. She does use home oxygen. Home medications include amiodarone, Eliquis, Qvar RediHaler, Flovent, levothyroxine, Singulair, omeprazole, and atenolol. White count 11.5, hemoglobin 9, hematocrit 27.8, and platelet count 283,000. Sodium 134, potassium 5.2, chlorides 103, CO2 26, BUN 11, creatinine 0.36. Calcium is 7.9. Albumin is 3. Chest x-ray shows a right midlung masslike opacity. CT scan shows multifocal groundglass opacities in the bilateral upper lobes, with areas of organizing consolidation, in the right upper lobe. Some involvement in the right middle lobe is also seen. Neoplasm cannot be excluded. The nodular lesion seen on x-ray, measures 2.2 x 2.0 cm, in the right midlung. Progress note dated November 22, 2023. The patient is seen today in room 357. She is currently on 2 L of oxygen. She is getting saline at 75 cc an hour. The patient is awaiting transfer to [facility], for her massive hemoptysis. In fact, throughout the night, the patient has been continuing to cough up bright red blood. We will add some Tessalon Perles to her regimen, to hopefully control her cough a bit more. Current labs include a white count of 12.4, hemoglobin 8.6, hematocrit 26.8, and a platelet count of 297,000. Objective - Vital Signs Vital signs: Vital Signs Temp 98.2 F 11/22/23 09:10 Pulse 87 11/22/23 09:10 Resp 20 11/22/23 09:10 BP 149/74 11/22/23 09:10 Pulse Ox 96 11/22/23 09:10 FiO2 Intake & Output 11/21/23 11/22/23 11/22/23 18:59 06:59 18:59 Intake Total 630 720 240 Balance 630 720 240 Intake: Oral 630 720 240 Other: Voiding Method Toilet Toilet # Voids 1 1 1 - Exam No acute distress, oriented 3. Currently on 2 L. No respiratory distress. No conversational dyspnea. HEENT examination is grossly unremarkable. Mucous membranes are moist. No oral lesions. Neck supple. Full range of motion. No adenopathy thyromegaly or neck vein distention. Cardiovascular examination reveals regular rhythm rate. S1-S2 normal. No S3 or S4. No discernible murmur noted. Heart rate 87 bpm. Lungs reveal scattered bilateral rhonchi. No wheezes. No crackles. Breath sounds equal bilaterally. Saturations are 96 %. Abdomen soft bowel sounds are heard. No masses or tenderness. Extremities are intact. No cyanosis clubbing or edema. Skin is without rash or lesion. Neurologic examination is brief but nonfocal. - Labs CBC & Chem 7: 11/22/23 09:52 11/21/23 08:39 Labs: Abnormal Lab Results - Last 24 Hours (Table) 11/21/23 11/22/23 Range/Units 08:39 09:52 WBC 12.4 H (3.8-10.6) k/uL RBC 2.71 L (3.80-5.40) m/uL Hgb 8.6 L (11.4-16.0) gm/dL Hct 26.8 L (34.0-46.0) % Neutrophils # 8.8 H (1.3-7.7) k/uL Monocytes # 1.2 H (0-1.0) k/uL Procalcitonin 0.20 H (0.02-0.09) ng/mL Assessment and Plan Assessment: Massive hemoptysis, second episode, of unclear etiology. May relate to nodular lesion, in right midlung. Right midlung lesion, which could represent infectious, and/or neoplastic process. History of COPD and asthma. Lifelong non-smoker. History of chronic atrial fibrillation. History of hypothyroidism. Gastroesophageal reflux disease. Plan: Plan dated November 21, 2023. It is my opinion, that the patient should be transferred, to [facility], for bronchial artery embolization, for her second episode of massive hemoptysis. According to the ER member, and EMS, the patient coughed up 500 to 700 cc of bright red blood. The patient is on a blood thinner, for her chronic atrial fibrillation, which is certainly contributing to the hemoptysis. In addition, she has a lesion in the right midlung, which could be infectious/inflammatory/neoplastic. This area, is apparently being followed by her business systems architect, at [facility]. The patient should have an outpatient PET scan as well. Additional recommendations and suggestions are forthcoming. Will pass on our recommendations to the hospital team. Plan dated November 22, 2023. The patient is awaiting a bed at [facility]. The patient is currently on 2 L. She is getting saline at 75 cc an hour. Her hemoglobin this morning was 8.6. We added Tessalon Perles. Throughout the night, the patient was continued to cough up bright red blood. The patient is a DO NOT RESUSCITATE patient. Labs, x-rays, and medications are reviewed. In addition, the patient has a lesion on the right midlung, which may represent a lung cancer, versus an infectious etiology. The patient will likely need a PET scan, and possible bronchoscopy. Hoping to have the patient discharged later today. Time with Patient: Less than 30
[2023-11-22] MEDS: BENZONATATE 100 MG CAP PO SCH (10:39)
[2023-11-22 10:45] LABS: ALT 18 U/L (4-34); AST 24 U/L (14-36); African American GFR (CKD) >90 (>60 ml/min/1.73 sqM); Albumin 3.2 g/dL (3.5-5.0); Alkaline Phosphatase 99 U/L (38-126); Anion Gap 4 mmol/L; Blood Urea Nitrogen 11 mg/dL (7-17); Calcium 8.4 mg/dL (8.4-10.2); Carbon Dioxide 30 mmol/L (22-30); Chloride 101 mmol/L (98-107); Glucose 100 mg/dL (74-99); Non-African American GFR(CKD) >90 (>60 ml/min/1.73 sqM); Potassium 4.1 mmol/L (3.5-5.1); Sodium 135 mmol/L (137-145); Total Bilirubin 0.3 mg/dL (0.2-1.3); Total Protein 5.8 g/dL (6.3-8.2)
--- NOTE | 2023-11-22 12:52 | P.PN ---
Subjective Progress Note Date: 11/22/23 patient is a 83-year-old lady with past medical significant for A-fib on Eliquis, hypothyroidism who was brought to the ER for hemoptysis. Patient was complaining of shortness of breath at rest. According to EMS patient has coughed up around 700 mL of blood. There was no complaint of chest pain. Patie nt denies any fever or chills. There was no complaint of nausea or vomiting, denies any hematemesis. Because of this, patient was brought to the ER Initial lab work done in the ER showed WBC 7.5, hemoglobin 9.8, platelet count 397, sodium 133, potassium 3.7, BUN 14, creatinine 0.41, lactate 2.6 troponin 0.012 EKG done in the ER showed heart rate of 109, sinus tachycardia, no ST segment elevation or depression seen, no T-wave inversions seen. Chest x-ray done in the ER showed right midlung masslike opacity further evaluation of the chest with CT recommended CT chest done showed multifocal groundglass opacities in the bilateral upper lobe with areas of organizing consolidation in the right upper lobe. Some involving in the right middle lobe seen. Because of hemoptysis, patient received Kcentra in the ER Patient admitted to internal medicine service 11/21. Patient seen and examined. Currently waiting on transfer to [facility] for hemoptysis. Patient still having hemoptysis. Complaining of wheezing and being short of breath REVIEW OF SYSTEMS: CONSTITUTIONAL: No fever, no malaise,. CARDIOVASCULAR: No chest pain, no palpitations, no syncope. PULMONARY: As mentioned above GASTROINTESTINAL: No diarrhea, no nausea, no vomiting, no abdominal pain. NEUROLOGICAL: No headaches, no weakness, PHYSICAL EXAMINATION: GENERAL: The patient is alert and oriented x3, not in any acute distress. Well developed, well nourished. HEENT: Pupils are round and equally reacting to light. EOMI. No scleral icterus. No conjunctival pallor. Normocephalic, atraumatic. No pharyngeal erythema. No thyromegaly. CARDIOVASCULAR: S1 and S2 present. No murmurs, rubs, or gallops. PULMONARY: Breath sound bilaterally, no wheezing or crackles. ABDOMEN: Soft, nontender, nondistended, normoactive bowel sounds. No palpable organomegaly. MUSCULOSKELETAL: No joint swelling or deformity. EXTREMITIES: No cyanosis, clubbing, or pedal edema. NEUROLOGICAL: Gross neurological examination did not reveal any focal deficits. SKIN: No rashes. Assessment and plan Hemoptysis Acute hypoxic respiratory failure Right midlung mass History of atrial fibrillation Hypothyroidism History of COPD and asthma. Lifelong non-smoker. Monitor vital signs Monitor CBC Monitor CMP Continue telemetry monitoring Patient already received Kcentra in the ER on 11/19 Continue breathing treatment Start IV Solu-Medrol Continue IV Protonix Continue amiodarone and atenolol. Pulmonology following Patient accepted at [facility], currently waiting on bed availability Labs and medication were reviewed.. Continue same treatment. Continue with symptomatic treatment. Resume home medication. Monitor labs and vitals. DVT and GI prophylaxis. Further recommendations as per clinical course of the patient Dictation was produced using [employer] dictation software. please excuse any gram matical, word or spelling errors. Objective - Vital Signs Vital signs: Vital Signs Temp 98.2 F 11/22/23 09:10 Pulse 87 11/22/23 09:10 Resp 20 11/22/23 09:10 BP 149/74 11/22/23 09:10 Pulse Ox 96 11/22/23 09:10 FiO2 Intake & Output 11/21/23 11/22/23 11/22/23 18:59 06:59 18:59 Intake Total 630 720 240 Balance 630 720 240 Intake: Oral 630 720 240 Other: Voiding Method Toilet Toilet # Voids 1 1 1 - Labs CBC & Chem 7: 11/22/23 09:52 11/22/23 09:52 Labs: Abnormal Lab Results - Last 24 Hours (Table) 11/21/23 11/21/23 Range/Units 08:39 08:39 Sodium 134 L (137-145) mmol/L Potassium 5.2 H (3.5-5.1) mmol/L Creatinine 0.36 L (0.52-1.04) mg/dL Glucose 183 H (74-99) mg/dL Calcium 7.9 L (8.4-10.2) mg/dL Total Protein 5.6 L (6.3-8.2) g/dL Albumin 3.0 L (3.5-5.0) g/dL Procalcitonin 0.20 H (0.02-0.09) ng/mL
[2023-11-22] MEDS: methylPREDNISolone SOD SUCCI 40 MG/ML 1 ML VIAL IV SCH (13:34)
[2023-11-22 21:01] VITALS: RESP 18
--- NOTE | 2023-11-23 11:24 | P.PN ---
Subjective Progress Note Date: 11/23/23 Principal diagnosis: Hemoptysis. Pulmonary consult dated November 21, 2023. 83-year-old female with a history of COPD, asthma, atrial fibrillation, and hypothyroidism, who was seen in the emergency department, on November 19, for shortness of breath, and coughing up blood. The patient apparently according to EMS, coughed up between 500 to 700 cc of bright red blood. The patient was placed on oxygen, and brought into the ER to be evaluated. She was admitted with a diagnosis of a right lung mass, and massive hemoptysis. She actually sees Dr. Adal Bauman at [facility]. Currently, she is on 3 L of oxygen, getting saline at 75 cc an hour. She had a previous episode of massive hemoptysis in March, of last year, and now again. According to her, Dr. Bauman has not really done much for the mass in her right chest. She has not had a bronchoscopy, or had a PET scan. She has had a chest x-ray, and CAT scan. She states that she was a lifelong non-smoker, but was still diagnosed with asthma, and COPD. She does use home oxygen. Home medications include amiodarone, Eliquis, Qvar RediHaler, Flovent, levothyroxine, Singulair, omeprazole, and atenolol. White count 11.5, hemoglobin 9, hematocrit 27.8, and platelet count 283,000. Sodium 134, potassium 5.2, chlorides 103, CO2 26, BUN 11, creatinine 0.36. Calcium is 7.9. Albumin is 3. Chest x-ray shows a right midlung masslike opacity. CT scan shows multifocal groundglass opacities in the bilateral upper lobes, with areas of organizing consolidation, in the right upper lobe. Some involvement in the right middle lobe is also seen. Neoplasm cannot be excluded. The nodular lesion seen on x-ray, measures 2.2 x 2.0 cm, in the right midlung. Progress note dated November 22, 2023. The patient is seen today in room 357. She is currently on 2 L of oxygen. She is getting saline at 75 cc an hour. The patient is awaiting transfer to [facility], for her massive hemoptysis. In fact, throughout the night, the patient has been continuing to cough up bright red blood. We will add some Tessalon Perles to her regimen, to hopefully control her cough a bit more. Current labs include a white count of 12.4, hemoglobin 8.6, hematocrit 26.8, and a platelet count of 297,000. Progress note dated November 23, 2023. 83-year-old female who presented with a episode of massive hemoptysis. We have been attempting to get the patient to [facility], for bronchial embolization therapy. The patient is still coughing up blood, but the blood quantity is less, and the blood is not still bright red anymore, but more dark red. The patient appears a bit better today, and feels a bit better. She continues on oxygen at 2 L. She is getting saline at 75 cc an hour. Current labs, are from yesterday. No new labs today. No chest x-ray today. Objective - Vital Signs Vital signs: Vital Signs Temp 97.6 F 11/23/23 07:56 Pulse 76 11/23/23 11:10 Resp 18 11/23/23 11:10 BP 169/81 11/23/23 11:10 Pulse Ox 93 L 11/23/23 11:10 FiO2 Intake & Output 11/22/23 11/23/23 11/23/23 18:59 06:59 18:59 Intake Total 476 540 240 Balance 476 540 240 Intake: Oral 476 540 240 Other: Voiding Method Toilet Toilet Toilet # Voids 2 2 - Exam No acute distress, oriented 3. Currently on 2 L. No respiratory distress. No conversational dyspnea. HEENT examination is grossly unremarkable. Mucous membranes are moist. No oral lesions. Neck supple. Full range of motion. No adenopathy thyromegaly or neck vein distention. Cardiovascular examination reveals regular rhythm rate. S1-S2 normal. No S3 or S4. No discernible murmur noted. Heart rate 76 bpm. Lungs reveal scattered bilateral rhonchi. No wheezes. No crackles. Breath sounds equal bilaterally. Saturations are 93 %. Abdomen soft bowel sounds are heard. No masses or tenderness. Extremities are intact. No cyanosis clubbing or edema. Skin is without rash or lesion. Neurologic examination is brief but nonfocal. - Labs CBC & Chem 7: 11/22/23 09:52 11/22/23 09:52 Assessment and Plan Assessment: Massive hemoptysis, second episode, of unclear etiology. May relate to nodular lesion, in right midlung. Right midlung lesion, which could represent infectious, and/or neoplastic process. History of COPD and asthma. Lifelong non-smoker. History of chronic atrial fibrillation. History of hypothyroidism. Gastroesophageal reflux disease. Plan: Plan dated November 21, 2023. It is my opinion, that the patient should be transferred, to [facility], for bronchial artery embolization, for her second episode of massive hemoptysis. According to the ER member, and EMS, the patient coughed up 500 to 700 cc of bright red blood. The patient is on a blood thinner, for her chronic atrial fibrillation, which is certainly contributing to the hemoptysis. In addition, she has a lesion in the right midlung, which could be infectious/ inflammatory/neoplastic. This area, is apparently being followed by her finger buff sewer, at [facility]. The patient should have an outpatient PET scan as well. Additional recommendations and suggestions are forthcoming. Will pass on our recommendations to the hospital team. Plan dated November 22, 2023. The patient is awaiting a bed at [facility]. The patient is currently on 2 L. She is getting saline at 75 cc an hour. Her hemoglobin this morning was 8.6. We added Tessalon Perles. Throughout the night, the patient was continued to cough up bright red blood. The patient is a DO NOT RESUSCITATE patient. Labs, x-rays, and medications are reviewed. In addition, the patient has a lesion on the right midlung, which may represent a lung cancer, versus an infectious etiology. The patient will likely need a PET scan, and possible bronchoscopy. Hoping to have the patient discharged later today. Plan dated November 23, 2023. The patient appears to be doing a bit better. She still coughing up blood, mixed with mucoid phlegm. The patient is currently on 2 L. Clinically, she is feeling better. The blood is less in quantity, and darker red, rather than bright red. We will continue to follow make recommendations. Prognosis is certainly guarded. The patient is scheduled to be transferred to [facility]. So far, they do not have a bed. Labs, x-rays, and medications are reviewed. Prognosis is guarded. Time with Patient: Less than 30
[2023-11-23 12:58] LABS: HCT 27.7 % (34.0-46.0); HGB 8.8 gm/dL (11.4-16.0); MCH 31.2 pg (25.0-35.0); MCHC 31.8 g/dL (31.0-37.0); MCV 98.1 fL (80.0-100.0); Mean Platelet Volume 7.7; Platelet Count 366 k/uL (150-450); RBC 2.82 m/uL (3.80-5.40); RDW 13.5 % (11.5-15.5); WBC 11.1 k/uL (3.8-10.6)
--- NOTE | 2023-11-23 13:24 | P.PN ---
Subjective Progress Note Date: 11/23/23 * 83-year-old lady with past medical significant for A-fib on Eliquis, hypothyroidism who was brought to the ER for hemoptysis. Patient was complaining of shortness of breath at rest. According to EMS patient has coughed up around 700 mL of blood. There was no complaint of chest pain. Patient denies any fever or chills. There was no complaint of nausea or vomiting, denies any hematemesis. Because of this, patient was brought to the ER * Initial lab work done in the ER showed WBC 7.5, hemoglobin 9.8, platelet count 397, sodium 133, potassium 3.7, BUN 14, creatinine 0.41, lactate 2.6 troponin 0.012 * EKG done in the ER showed heart rate of 109, sinus tachycardia, no ST segment elevation or depression seen, no T-wave inversions seen. * Chest x-ray done in the ER showed right midlung masslike opacity further evaluation of the chest with CT recommended * CT chest done showed multifocal groundglass opacities in the bilateral upper lobe with areas of organizing consolidation in the right upper lobe. Some involving in the right middle lobe seen. * Because of hemoptysis, patient received Kcentra in the ERPatient admitted to internal medicine service * 11/21. Patient seen and examined. Currently waiting on transfer to [facility] for hemoptysis. Patient still having hemoptysis. Complaining of wheezing and being short of breath * 11/22: Dr Albarado assumed care. Patient still waiting for bed for transfer. Called [facility] again and spoke with on-call physician. Dr taylor attending physician at [place]. Patient did mention the streaks of blood are getting better however would still need to be transferred due to persistent hemoptysis. Son at bedside care plan explained he is in agreement PHYSICAL EXAMINATION: GENERAL: The patient is alert and oriented x3, not in any acute distress. Well developed, well nourished. HEENT: Pupils are round and equally reacting to light. EOMI. = CARDIOVASCULAR: S1 and S2 present. No murmurs, rubs, or gallops. PULMONARY: Breath sound bilaterally, no wheezing or crackles. ABDOMEN: Soft, nontender, nondistended, normoactive bowel sounds. No palpable organomegaly. MUSCULOSKELETAL: No joint swelling or deformity. EXTREMITIES: No cyanosis, clubbing, or pedal edema. NEUROLOGICAL: Gross neurological examination did not reveal any focal deficits. SKIN: No rashes. Assessment and plan Recurrent persistent hemoptysis Acute hypoxic respiratory failure Right midlung mass History of atrial fibrillation Hypothyroidism History of COPD and asthma. Lifelong non-smoker. * In regards to recurrent hemoptysis, patient already received Kcentra, continue to monitor H&H, Eliquis on hold. * Patient already received Kcentra in the ER on 11/19 * Patient seen by pulmonary medicine continue IV Solu-Medrol, continue breathing treatments as needed * Regards to atrial fibrillation continue patient on amiodarone and atenolol. Eliquis remains on hold Objective - Vital Signs Vital signs: Vital Signs Temp 97.6 F 11/23/23 07:56 Pulse 79 11/23/23 09:10 Resp 18 11/23/23 09:10 BP 141/69 11/23/23 07:56 Pulse Ox 99 11/23/23 07:56 FiO2 Intake & Output 11/22/23 11/23/23 11/23/23 18:59 06:59 18:59 Intake Total 476 540 240 Balance 476 540 240 Intake: Oral 476 540 240 Other: Voiding Method Toilet Toilet Toilet # Voids 2 2 - Labs CBC & Chem 7: 11/23/23 12:01 11/22/23 09:52 Labs: Abnormal Lab Results - Last 24 Hours (Table) 11/22/23 11/22/23 Range/Units 09:52 09:52 WBC 12.4 H (3.8-10.6) k/uL RBC 2.71 L (3.80-5.40) m/uL Hgb 8.6 L (11.4-16.0) gm/dL Hct 26.8 L (34.0-46.0) % Neutrophils # 8.8 H (1.3-7.7) k/uL Monocytes # 1.2 H (0-1.0) k/uL Sodium 135 L (137-145) mmol/L Creatinine 0.41 L (0.52-1.04) mg/dL Glucose 100 H (74-99) mg/dL Total Protein 5.8 L (6.3-8.2) g/dL Albumin 3.2 L (3.5-5.0) g/dL
[2023-11-23] MEDS: hydrALAZINE HCL 20 MG/ML 1 ML VIAL IVP STA (15:35)
[2023-11-23 21:39] VITALS: BP 171/70; PULSE 83; TEMP 97.5
== END 2023-11-23 23:06 | disposition short-term general hospital (02) | DRG 204 ==
LOC: EC 20:14 → 3SCARD 22:22
PROVIDERS: ADMIT Hospitalist; ATTEND Hospitalist
PROC: 30283B1 Transfusion of Nonautologous 4-Factor Prothrombin Complex Concentrate into Vein, Percutaneous Approach (ICD-10-PCS; principal; 2023-11-21)
DX: R04.2 Hemoptysis (principal); J96.01 Acute respiratory failure with hypoxia; J44.1 Chronic obstructive pulmonary disease with (acute) exacerbation; I48.20 Chronic atrial fibrillation, unspecified; E03.9 Hypothyroidism, unspecified; R91.1 Solitary pulmonary nodule; I10 Essential (primary) hypertension; K21.9 Gastro-esophageal reflux disease without esophagitis; Z88.0 Allergy status to penicillin; Z79.01 Long term (current) use of anticoagulants; Z79.890 Hormone replacement therapy; Z79.899 Other long term (current) drug therapy; Z90.710 Acquired absence of both cervix and uterus; Z99.81 Dependence on supplemental oxygen
CPT/HCPCS: 36415; 71045; 71260; 80053; 83605; 83735; 83880; 84100; 84145; 84484; 85025; 85027; 85610; 85730; 86850; 86900; 86901; 87635; 93005; 94640; 94760; 96372; 96374; 96375; 99285

== ENCOUNTER 2024-08-09 19:53 | Emergency (ER) | payer MEDICARE ==
--- NOTE | 2024-08-09 19:58 | ED ---
Arrhythmia/Palpitations HPI - General Stated Complaint: Afib Time Seen by Provider: 08/09/24 19:57 Source: RN notes reviewed, old records reviewed Mode of arrival: EMS Limitations: no limitations - History of Present Illness Initial Comments: This is a 84-year-old female who believes that she is in atrial fibrillation, concern for atrial fibrillation and mild anxiety to the symptoms. On arrival to the ER though patient states she feels improved from when she did at home has no chest pain or shortness of breath currently history of atrial fibrillation and takes medications as prescribed MD Complaint: rapid heart beat, palpitations, irregular heart beat, atrial fibrillation -: hour(s) Context: occurred during rest Arrhythmia History: atrial fibrillation Associated Symptoms: denies other symptoms Treatments Prior to Arrival: other (0) - Related Data Home Medications Medication Instructions Recorded Confirmed Amiodarone [Cordarone] 100 mg PO DAILY 11/20/23 11/20/23 Beclomethasone Dipropionate [Qvar 2 puff INHALATION DIRECTED 11/20/23 11/20/23 80mcg Redihaler] Cranberry 4,200 Mg 4,200 mg PO BID 11/20/23 11/20/23 Fluticasone Propionate 110 Mcg 2 puff INHALATION RT-BID 11/20/23 11/20/23 [Flovent 110 Mcg Inhaler] Levothyroxine Sodium [Synthroid] 75 mcg PO DAILY 11/20/23 11/20/23 Montelukast [Singulair] 10 mg PO HS 11/20/23 11/20/23 Multivit-Min/Iron/Folic/Lutein 1 tab PO HS 11/20/23 11/20/23 [Centrum Silver Women Tablet] Omeprazole 20 mg PO DAILY 11/20/23 11/20/23 Vit C/E/Zn/Coppr/Lutein/Zeaxan 1 cap PO BID 11/20/23 11/20/23 [Preservision Areds 2 Softgel] atenoloL [Tenormin] 25 mg PO HS 11/20/23 11/20/23 Allergies Allergy/AdvReac Type Severity Reaction Status Date / Time azithromycin [From Zithromax] Allergy Rash/Hives Verified 08/09/24 19:56 Penicillins Allergy Rash/Hives Verified 11/20/23 22:17 Review of Systems ROS Statement: Those systems with pertinent positive or pertinent negative responses have been documented in the HPI. ROS Other: All systems not noted in ROS Statement are negative. Past Medical History Past Medical History: Atrial Fibrillation, Asthma, COPD, Hypertension History of Any Multi-Drug Resistant Organisms: None Reported Past Surgical History: Cholecystectomy, Hysterectomy Past Anesthesia/Blood Transfusion Reactions: No Reported Reaction Past Psychological History: No Psychological Hx Reported Smoking Status: Never smoker Past Alcohol Use History: None Reported Past Drug Use History: None Reported General Exam General appearance: alert, in no apparent distress, anxious Head exam: Present: atraumatic, normocephalic, normal inspection Eye exam: Present: normal appearance, PERRL, EOMI. Absent: scleral icterus, conjunctival injection, periorbital swelling ENT exam: Present: normal exam, mucous membranes moist Neck exam: Present: normal inspection. Absent: tenderness, meningismus, lymphadenopathy Respiratory exam: Present: normal lung sounds bilaterally. Absent: respiratory distress, wheezes, rales, rhonchi, stridor Cardiovascular Exam: Present: normal rhythm, tachycardia, normal heart sounds. Absent: systolic murmur, diastolic murmur, rubs, gallop, clicks GI/Abdominal exam: Present: soft, normal bowel sounds. Absent: distended, tenderness, guarding, rebound, rigid Extremities exam: Present: normal inspection, full ROM, normal capillary refill. Absent: tenderness, pedal edema, joint swelling, calf tenderness Back exam: Present: normal inspection Neurological exam: Present: alert, oriented X3, CN II-XII intact Psychiatric exam: Present: normal affect, normal mood Skin exam: Present: warm, dry, intact, normal color. Absent: rash Course Vital Signs 08/09/24 08/09/24 08/09/24 19:57 21:00 22:00 Temperature 97.7 F Pulse Rate 124 H 78 74 Respiratory 17 17 18 Rate Blood Pressure 172/87 170/82 155/85 O2 Sat by Pulse 98 99 98 Oximetry - Reevaluation(s) Reevaluation #1: Medical records reviewed Reevaluation #2: Patient symptoms improved Reevaluation #3: Patient informed of results questions answered Reevaluation #4: Was pt. sent in by a medical professional or institution (, PA, FISH PROTECTOR, urgent care, hospital, or prison...) When possible be specific @ -no Did you speak to anyone other than the patient for history (EMS, parent, family, police, friend...)? What history was obtained from this source @ -no Did you review nursing and triage notes (agree or disagree)? Why? @ -agree Are old charts reviewed (outside hosp., previous admission, EMS record, old EKG, old radiological studies, urgent care reports/EKG's, prison records)? Report findings @ -yes Differential Diagnosis (chest pain, altered mental status, abdominal pain women, abdominal pain men, vaginal bleeding, weakness, fever, dyspnea, syncope, headache, dizziness, GI bleed, back pain, seizure, CVA, palpatations, mental health, musculoskeletal)? @ -prior EKG interpreted by me (3pts min.). @ -yes X-rays interpreted by me (1pt min.). @ -yes negative for acute disease CT interpreted by me (1pt min.). @ -no U/S interpreted by me (1pt. min.). @ -no What testing was considered but not performed or refused? (CT, X-rays, U/S, labs )? Why? @ -none What meds were considered but not given or refused? Why? @ -none Did you discuss the management of the patient with other professionals (professionals i.e. , PA, FISH PROTECTOR, lab, RT, psych nurse, vp digital marketing social media and crm, dispensing optician, teacher, chairman president and chief executive officer, comp field case manager)? Give summary @ -no Was smoking cessation discussed for >3mins.? @ -no Was critical care preformed (if so, how long)? @ -no Were there social determinants of health that impacted care today? How? (Homelessness, low income, unemployed, alcoholism, drug addiction, transportation, low edu. Level, literacy, decrease access to med. care, retirement, rehab)? @ -none Was there de-escalation of care discussed even if they declined (Discuss DNR or withdrawal of care, Hospice)? DNR status @ -no What co-morbidities impacted this encounter? (DM, HTN, Smoking, COPD, CAD, Cancer, CVA, ARF, Chemo, Hep., AIDS, mental health diagnosis, sleep apnea, morbid obesity)? @ -none Was patient admitted / discharged? Hospital course, mention meds given and route, prescriptions, significant lab abnormalities, going to OR and other pertinent info. @ -84 female to the ER for evaluation of possible atrial fibrillation but no acute findings of A-fib here in the ER patient feels well and can be discharged home Discharge Undiagnosed new problem with uncertain prognosis? @ -no Drug Therapy requiring intensive monitoring for toxicity (Heparin, Nitro, Insulin, Cardizem)? @ -no Were any procedures done? @ -no Diagnosis/symptom? @ -Atrial fibrillation, normal sinus rhythm here in the ER Acute, or Chronic, or Acute on Chronic? @ -Acute Uncomplicated (without systemic symptoms) or Complicated (systemic symptoms)? @ -Complicated Side effects of treatment? @ -no Exacerbation, Progression, or Severe Exacerbation? @ -exacerbation Poses a threat to life or bodily function? How? (Chest pain, USA, OR, pneumonia, PE, COPD, DKA, ARF, appy, cholecystitis, CVA, Diverticulitis, Homicidal, Suicidal, threat to staff... and all critical care pts) @ -yes Reevaluation #5: Differential Chest Pain: Stable Angina, Unstable Angina, STEMI, NSTEMI Aortic Dissection, Pneumothorax, Musculoskeletal, Esophageal Spasm GERD, Cholecystitis, Pancreatitis, Zoster, this is not meant to be an all-inclusive list. Differential Palpitations Ventricular arrhythmias, atrial arrhythmias, myocardial infarction, anemia, thyrotoxicosis, electrolyte imbalance, hypokalemia, pulmonary embolism, pulmonary disease, drugs, alcohol, anxiety, stress.... This is not meant to be an all-inclusive list. EKG Findings - EKG Comments: EKG Findings:: EKG is sinus 94 AR 193 QRS 98 QTc 431 - EKG Results: EKG: interpreted by ERMD Medical Decision Making - Medical Decision Making 84 female to the ER for evaluation of possible atrial fibrillation patient is not in atrial fibrillation currently little anxious but has no other complaints - Lab Data Result diagrams: 08/09/24 20:06 08/09/24 21:30 Lab Results 08/09/24 08/09/24 08/09/24 Range/Units 20:06 20:06 21:30 WBC 6.9 (3.8-10.6) k/uL RBC 3.80 (3.80-5.40) m/uL Hgb 12.1 (11.4-16.0) gm/dL Hct 37.2 (34.0-46.0) % MCV 98.1 (80.0-100.0) fL MCH 32.0 (25.0-35.0) pg MCHC 32.6 (31.0-37.0) g/dL RDW 12.6 (11.5-15.5) % Plt Count 419 (150-450) k/uL MPV 7.7 Neutrophils % 61 % Lymphocytes % 25 % Monocytes % 8 % Eosinophils % 3 % Basophils % 0 % Neutrophils # 4.2 (1.3-7.7) k/uL Lymphocytes # 1.8 (1.0-4.8) k/uL Monocytes # 0.5 (0-1.0) k/uL Eosinophils # 0.2 (0-0.7) k/uL Basophils # 0.0 (0-0.2) k/uL PT 10.8 (10.0-12.5) sec INR 1.0 (<1.2) APTT 23.1 (22.0-30.0) sec Sodium 134 L (137-145) mmol/L Potassium 3.6 (3.5-5.1) mmol/L Chloride 103 (98-107) mmol/L Carbon Dioxide 25 (22-30) mmol/L Anion Gap 6 mmol/L BUN 15 (7-17) mg/dL Creatinine 0.44 L (0.52-1.04) mg/dL Est GFR (CKD-EPI)AfAm >90 (>60 ml/min/1.73 sqM) Est GFR (CKD-EPI)NonAf >90 (>60 ml/min/1.73 sqM) Glucose 99 (74-99) mg/dL Calcium 8.1 L (8.4-10.2) mg/dL Magnesium 2.0 (1.6-2.3) mg/dL Total Bilirubin 0.2 (0.2-1.3) mg/dL AST 19 (14-36) U/L ALT 17 (4-34) U/L Alkaline Phosphatase 76 (38-126) U/L Troponin I (0.000-0.034) ng/mL Total Protein 5.8 L (6.3-8.2) g/dL Albumin 3.3 L (3.5-5.0) g/dL 08/09/24 Range/Units 21:30 WBC (3.8-10.6) k/uL RBC (3.80-5.40) m/uL Hgb (11.4-16.0) gm/dL Hct (34.0-46.0) % MCV (80.0-100.0) fL MCH (25.0-35.0) pg MCHC (31.0-37.0) g/dL RDW (11.5-15.5) % Plt Count (150-450) k/uL MPV Neutrophils % % Lymphocytes % % Monocytes % % Eosinophils % % Basophils % % Neutrophils # (1.3-7.7) k/uL Lymphocytes # (1.0-4.8) k/uL Monocytes # (0-1.0) k/uL Eosinophils # (0-0.7) k/uL Basophils # (0-0.2) k/uL PT (10.0-12.5) sec INR (<1.2) APTT (22.0-30.0) sec Sodium (137-145) mmol/L Potassium (3.5-5.1) mmol/L Chloride (98-107) mmol/L Carbon Dioxide (22-30) mmol/L Anion Gap mmol/L BUN (7-17) mg/dL Creatinine (0.52-1.04) mg/dL Est GFR (CKD-EPI)AfAm (>60 ml/min/1.73 sqM) Est GFR (CKD-EPI)NonAf (>60 ml/min/1.73 sqM) Glucose (74-99) mg/dL Calcium (8.4-10.2) mg/dL Magnesium (1.6-2.3) mg/dL Total Bilirubin (0.2-1.3) mg/dL AST (14-36) U/L ALT (4-34) U/L Alkaline Phosphatase (38-126) U/L Troponin I <0.012 (0.000-0.034) ng/mL Total Protein (6.3-8.2) g/dL Albumin (3.5-5.0) g/dL - EKG Data -: EKG Interpreted by Md - Radiology Data Radiology results: report reviewed (Chest x-ray is negative for acute disease), image reviewed Disposition Clinical Impression: Palpitations, Atrial fibrillation Disposition: HOME SELF-CARE Condition: Fair Instructions (If sedation given, give patient instructions): Heart Palpitations (ED) Is patient prescribed a controlled substance at d/c from ED?: No Referrals: Marianne Dahl [Primary Care Provider] - 1-2 days Time of Disposition: 22:00
--- NOTE | 2024-08-09 20:17 | XR ---
EXAMINATION TYPE: XR chest 1V portable DATE OF EXAM: 08/09/2024 8:11 PM COMPARISON: Previous chest radiographs, most recent dated 11/21/2023. CLINICAL INDICATION: Female, 84 years old with history of dysrhythmia; [facility] TECHNIQUE: XR chest 1V portable Frontal view of the chest. FINDINGS: Borderline mild cardiomegaly. Lungs hyperinflated with coarsening of interstitial markings. Trace left pleural effusion. No sizable right-sided pleural effusion. No acute focal consolidation. M inimal left mid lung scarring/atelectasis. No pneumothorax. Apical scarring noted. No acute osseous abnormality. IMPRESSION: Possible trace left pleural effusion and mild left midlung scarring/atelectasis. [facility], , 08/09/2024 8:15 PM
[2024-08-09] MEDS: DILTIAZEM DRIP BOLUS FROM BAG 1 MG SOLN IV ONE (20:18)
[2024-08-09] MEDS: SODIUM CHLORIDE 0.9% 500 ML 500 ML IV STA (20:19)
[2024-08-09] MEDS: SODIUM CHLORIDE 0.9% 1,000 ML IV STA (20:19)
[2024-08-09] MEDS: DILTIAZEM 125 MG in SODIUM CHLORIDE 0.9% 100 ML IV SCH (20:19)
[2024-08-09 20:20] VITALS: TEMP 97.7
[2024-08-09] MEDS: METOPROLOL TARTRATE 5 MG/5 ML VIAL IVP STA (20:30)
[2024-08-09 20:34] LABS: Basophils % (A) 0 %; Eosinophils # (A) 0.2 k/uL (0-0.7); Eosinophils % (A) 3 %; HCT 37.2 % (34.0-46.0); HGB 12.1 gm/dL (11.4-16.0); Lymphocytes # (A) 1.8 k/uL (1.0-4.8); Lymphocytes % (A) 25 %; MCHC 32.6 g/dL (31.0-37.0); MCV 98.1 fL (80.0-100.0); Mean Platelet Volume 7.7; Monocytes # (A) 0.5 k/uL (0-1.0); Monocytes % (A) 8 %; Neutrophils # (A) 4.2 k/uL (1.3-7.7); Neutrophils % (A) 61 %; Platelet Count 419 k/uL (150-450); RDW 12.6 % (11.5-15.5); WBC 6.9 k/uL (3.8-10.6)
[2024-08-09 20:40] LABS: Partial Thromboplastin Time 23.1 sec (22.0-30.0); Prothrombin Time 10.8 sec (10.0-12.5)
[2024-08-09 21:49] LABS: ALT 17 U/L (4-34); AST 19 U/L (14-36); African American GFR (CKD) >90 (>60 ml/min/1.73 sqM); Albumin 3.3 g/dL (3.5-5.0); Alkaline Phosphatase 76 U/L (38-126); Anion Gap 6 mmol/L; Blood Urea Nitrogen 15 mg/dL (7-17); Calcium 8.1 mg/dL (8.4-10.2); Carbon Dioxide 25 mmol/L (22-30); Chloride 103 mmol/L (98-107); Glucose 99 mg/dL (74-99); Non-African American GFR(CKD) >90 (>60 ml/min/1.73 sqM); Potassium 3.6 mmol/L (3.5-5.1); Sodium 134 mmol/L (137-145); Total Bilirubin 0.2 mg/dL (0.2-1.3); Total Protein 5.8 g/dL (6.3-8.2)
[2024-08-09 22:20] VITALS: BP 155/85; PULSE 74; RESP 18
== END 2024-08-09 22:33 | disposition home or self-care (01) ==
LOC: EC 19:53
DX: I48.91 Unspecified atrial fibrillation (principal); Z88.1 Allergy status to other antibiotic agents; Z88.0 Allergy status to penicillin
CPT/HCPCS: 36415; 71045; 80053; 83735; 84484; 85025; 85610; 85730; 93005; 96374; 99284